=== PATIENT | female | born 1955 | race Caucasian/White ===

== ENCOUNTER 2021-07-26 16:17 | Emergency (ER) | payer MEDICARE ==
[~2021-07-26] VITALS: Ht 170.2 cm; Wt 95.0 kg
[2021-07-26 17:20] VITALS: BP 141/69
[2021-08-09] MEDS ORDERED: TELM1TAB PO (16:16)
[2021-08-09] MEDS ORDERED: DULO60CA65 PO (16:16)
[2021-08-09] MEDS ORDERED: BUPR-317 PO (16:16)
[2021-08-09] MEDS ORDERED: LEVO50TA PO (16:16)
[2021-08-09] MEDS ORDERED: PHYT100T PO (16:16)
[2021-08-09] MEDS ORDERED: TRAZ-251 PO (16:16)
[2021-08-09] MEDS ORDERED: CALC-723 PO (16:18)
[2021-08-09] MEDS ORDERED: ACET-1025 PO (16:18)
[2021-08-09] MEDS ORDERED: HYDR-3972 PO (16:18)
[2021-08-13] MEDS ORDERED: PANT40TA54 PO (09:27)
== END 2021-07-26 19:00 | disposition home or self-care (01) ==
LOC: ER 16:19
DX: S93.401A Sprain of unspecified ligament of right ankle, initial encounter (principal); S30.0XXA Contusion of lower back and pelvis, initial encounter; M25.571 Pain in right ankle and joints of right foot; M25.511 Pain in right shoulder; Z98.890 Other specified postprocedural states; W03.XXXA Other fall on same level due to collision with another person, initial encounter; Y93.89 Activity, other specified; Y92.89 Other specified places as the place of occurrence of the external cause; Y99.8 Other external cause status
CPT/HCPCS: 29515; 73502; 73610; 99284